=== PATIENT | female | born 1970 | race Caucasian/White ===

== ENCOUNTER 2016-04-07 05:21 | Day surgery (SDC) | payer OTHER ==
[2016-04-06 14:50] LABS: BASOPHILS 0.6 % (0.0-2.0); HEMATOCRIT 30.1 % (36.0-48.0); HEMOGLOBIN 8.8 g/dL (12-16); LYMPHOCYTES 31.9 % (15-50); MCH 20.7 pg (26.0-34.0); MCHC 29.2 g/dL (31.0-37.0); MCV 70.8 fL (80.0-100.0); MEAN PLATELET VOLUME 9.1 fL (7.4-10.4); MONOCYTES 8.2 % (2-11); NEUTROPHILS 56.3 % (40-80); PLATELET COUNT 491 10x3/uL (130-400); RBC 4.25 10x6/uL (4.00-5.40); WBC 6.7 10x3/uL (4.8-10.8)
[~2016-04-07] VITALS: Ht 180.3 cm; Wt 167.8 kg
[~2016-04-07 05:21] MED LIST: FERROUS SULFAT325 MG PO; GLUCOSAMINE & C1 CAP PO
[2016-04-07 06:09] VITALS: BP 154/76; Ht 180.3 cm; Wt 167.8 kg
--- NOTE | 2016-04-07 06:44 | NUR ---
TORADOL HELD, STATES DOES NOT TAKE ANY ANTI-INFLAMMATORY DRUGS. STATES "I JUST TAKE TYLENOL."
[2016-04-07 06:46] LABS: HCG URINE NEGATIVE (NEGATIVE)
[2016-04-07] MEDS ORDERED: PERCOCET 5-3251 TAB PO (09:14)
--- NOTE | 2016-04-07 09:56 | OP ---
PATIENT NAME: CHRISTY PATEL MEDICAL RECORD: [id number] :66 LOCATION:[facility] ADMISSION DATE: SURGEON: CELINE BUSBY MD DATE OF OPERATION: 04/07/2016 PREOPERATIVE DIAGNOSES: Menorrhagia and anemia. POSTOPERATIVE DIAGNOSES: Menorrhagia and anemia. PROCEDURES: Endocervical curettage, hysteroscopy, endometrial biopsy, and endometrial curettage. SURGEON: Celine Busby MD ANESTHESIA: General. FINDINGS: A 15 cm endometrial cavity depth, no endometrial lesions were seen. ESTIMATED BLOOD LOSS: Minimal. COMPLICATIONS OF SURGERY: None. OPERATIVE NOTE: The patient was taken to the OR and under adequate general anesthesia, prepped and draped in the usual manner for vaginal procedures with legs in floating boot Chucho stirrups. The anterior lip of the cervix was grasped with tenaculum. Endocervical curettage was performed. Endometrial cavity was then sounded to 15 cm or greater in depth. The cervix was progressively dilated to accept the hysteroscope and hysteroscopic evaluation revealed an atrophic appearing fairly smooth endometrium. Random areas were taken for biopsy. Instruments were then removed and a thorough endometrial curettage was performed and sent as a separate specimen. All instruments were then removed from the vagina and cervix and observation revealed no bleeding. The patient went to the recovery area in good condition. TRANSINT:[id number] Voice Confirmation ID: [id number] DOCUMENT ID: [id number] CELINE BUSBY MD at 0956 CC: [id number] DICTATION DATE: 04/07/16828 MEDICAL CLAIMS ASSISTANT: 04/07/16 0900 [place] [address]
--- NOTE | 2016-04-07 09:56 | HP ---
PATIENT: CHRISTY PATEL MEDICAL RECORD: [id number] ACCOUNT: [id number] LOCATION:[facility] : 66 ADMISSION DATE: 04/07/16 HISTORY AND PHYSICAL EXAMINATION Christy Patel is scheduled for an examination under anesthesia, endocervical and endometrial biopsies, hysteroscopy and endometrial curettage. HISTORY OF PRESENT ILLNESS: This patient is a 46-year-old 3, para 3 female with history of severe menorrhagia and anemia. An attempt was made to do an in office endometrial biopsy, but this was unsuccessful. MEDICAL HISTORY: DRUG ALLERGIES: NAPROXEN. CURRENT MEDICATIONS: Iron supplementation. MEDICAL PROBLEMS: Include morbid obesity, anemia and joint pain. FAMILY HISTORY: Noncontributory. REVIEW OF SYSTEMS: Denies chest pain or dyspnea. Positive for joint pain, precluding adequate exercise. PHYSICAL EXAMINATION: VITAL SIGNS: Weight is 272 pounds, blood pressure 120/78. HEENT: Grossly unremarkable. LUNGS: Clear. HEART: Regular rate and rhythm. ABDOMEN: Reveals no abnormalities. PELVIC: Deferred for anesthesia. EXTREMITIES: No cyanosis, clubbing or edema. NEUROLOGIC: Grossly intact. IMPRESSION: Morbid obesity, severe menorrhagia and anemia, unsuccessful office endometrial biopsy. PLAN: Examination under anesthesia, endometrial biopsy, endometrial curettage, hysteroscopy, all indicated procedures. I have discussed the potential risks of surgery for patient and answered all her questions. TRANSINT:[id number] Voice Confirmation ID: [id number] DOCUMENT ID: [id number] NANCIE BUSBY MD at 0956 CC: [id number] DICTATION DATE: 04/06/16 1629 SOFT DRINK POWDER MIXER: 04/06/16 1735 [facility] [address] [id number]
--- NOTE | 2016-04-07 10:00 | NUR ---
DISCHARGED HOME VIA WC
== END 2016-04-07 10:00 | disposition home or self-care (01) ==
LOC: D.OPS 05:21 → D.PAN 07:30 → D.OPS 10:00
PROVIDERS: Obstetrics & Gynecology
DX: N92.0 Excessive and frequent menstruation with regular cycle (principal); D64.9 Anemia, unspecified; E66.01 Morbid (severe) obesity due to excess calories; Z88.6 Allergy status to analgesic agent; Z79.899 Other long term (current) drug therapy

== ENCOUNTER → 2017-11-14 23:29 | Outpatient (CLI) | payer OTHER ==
[2016-04-07 06:09] VITALS: BMI 51.7
[~2017-11-14 23:29] MED LIST changes: +PERCOCET 5-3251 TAB PO
== END | disposition home or self-care (01) ==
LOC: D.MAMMO 16:00
DX: Z12.31 Encounter for screening mammogram for malignant neoplasm of breast (principal)

== ENCOUNTER 2018-05-28 18:29 | Inpatient (IN) | payer SELFPAY ==
[~2018-05-28] VITALS: Ht 180.3 cm; Wt 174.5 kg
--- NOTE | ~2018-05-28 | HEMODYNAMI ---
PATIENT:CHRISTY PATEL MEDICAL RECORD: [id number] : 66 LOCATION:[facility] D.2124 ADMISSION DATE: 05/29/18 Generatedon:05/30/201810:21 Patient name: CHRISTY PATEL Patient #: [id number] SSN: : 1970 Date of study: 05/30/2018 Page: Of Hemodynamic Procedure Report Patient Data Patient Demographics Procedure consent was obtained First Name: CHRISTY Gender: Female Last Name: AMANDA : 1970 [facility] Initial: EVELINA Age: 48 year(s) Patient #: [id number] Race: Unknown Additional ID: [id number] Contact details [address]: [address] [place] [address] State: [place] City: [place] Zip code: [address] Past Medical History Allergies Allergen Reaction Date Comments Reported Other allergy 05/30/2018 naproxen Admission Admission Data Admission Date: 05/29/2018 Admission Time: 18:34 Room #: D.2124 Procedure Procedure Types Cath Procedure Diagnostic Procedure Cardioversion External Procedure Description Procedure Date Procedure Date: 05/30/2018 Procedure Start Time: 10:15 Procedure End Time: 10:20 Procedure Staff Name Function Ang Kowalski MD Performing Physician Zakiya Kim RT Monitor Jake Ji RN Nurse Antionette Monreal CRNA Additional personnel Procedure Data Procedure Complications No complications Procedure Medications Medication Administration Route Dosage Oxygen etCO2 Nasal cannula 6 l/min 0.9% NaCl I.V. 100 ml/hr Refer to Anesthesia Notes for Sedation Medications Hemodynamics Rest Pre Cath Intra NCS Post Cath Vital Signs Time Heart Resp SPO2 etCO2 NIBP Rhythm Pain Sedation Rate (ipm) (%) (mmHg) (mmHg) Status Level (bpm) 10:12:10 118 17 98 37.7 98/77(89) NSR 0 (11) 10(A) , No pain 10:16:43 90 16 95 35.4 102/67(82) NSR 0 (11) 4(A) , No pain 10:20:05 90 17 93 20.3 112/74(84) NSR 0 (11) 8(A) , No pain Medications Time Medication Route Dose Verified Delivered Reason Notes Effective ness by by 10:11:46 Oxygen etCO2 6 Ang Joseph Per Nasal l/min Dex Ji RN physician cannula 10:11:54 0.9% NaCl I.V. 100 Ang Joseph Per ml/hr Dex Ji RN physician 10:12:00 Refer to Ang Joseph Anesthesia Dex Ji RN Notes for Sedation Medications Procedure Log Time Note 9:27:16 Time tracking: Regular hours (M-F 7:00 - 5:00) 9:27:21 Plan of Care:Hemodynamics will remain stable., Cardiac rhythm will remain stable., Comfort level will be maintained., Respiratory function will remain adequate., Patient/ family verbilizes understanding of procedure., Procedure tolerated without complication., Recovers from procedure without complications.. 9:45:23 Jake Ji RN sent for patient. Start room use. 10:03:09 Patient received from PCU to CCL 3 Alert and oriented. Tansferred to table in Supine position. 10:03:10 Warm blankets applied, and dima hugger turned on for patient comfort. 10:03:10 Correct patient and procedure confirmed by team. 10:03:11 Signed procedure consent form obtained from patient. 10:03:12 ECG and BP/O2 sat monitors applied to patient. 10:03:12 Full Disclosure recording started 10:04:49 TOMASA MONREAL CRNA PRESENT AND MONITORING PATIENT FOR TIVA. 10:09:22 Vital chart was started 10:09:28 Rhythm: atrial flutter 10:09:46 H&P Date Dictated: 05/29/2018 Within 30 days and on chart.. 10:09:47 Pre-procedure instructions explained to patient. 10:09:48 Pre-op teaching completed and patient verbalized understanding. 10:09:50 Family in waiting room. 10:09:51 Patient NPO since Midnight. 10:10:06 Patient allergic to Other allergynaproxen 10:10:09 Is the patient allergic to Iodine/contrast media? No. 10:10:11 Is patient on blood thinner?No 10:10:12 Patient diabetic? No. 10:10:15 Previous problem with sedation/anesthesia? No ? 10:10:17 Snore? Yes 10:10:18 Sleep apnea? No 10:10:19 Deviated septum? No 10:10:20 Opens mouth fully? Yes 10:10:20 Sticks out tongue? Yes 10:10:22 Airway obstruction? No ? 10:10:23 Dentures? No ? 10:10:38 Patient pain scale 0/10 ?. 10:10:45 IV patent on arrival in right hand with 0.9% NaCl at [facility]. 10:10:46 Lab results completed and on chart. 10:11:46 Oxygen 6 l/min etCO2 Nasal cannula was administered by Jake Ji RN; Per physician; 10:11:54 0.9% NaCl 100 ml/hr I.V. was administered by Jake Ji RN; Per physician; 10:12:00 Refer to Anesthesia Notes for Sedation Medications was administered by Jake Ji RN; ; 10:13:26 Final Timeout: patient, procedure, and site verified with staff and physician. All members of the team are in agreement. 10:13:44 Fire Safety Assessment: E--There are other possible contributors. 10:13:47 Physical assessment completed. ASA score P 2 - A patient with mild systemic disease as per Ang Kowalski MD. 10:13:50 Sedation plan: TIVA Medication:Propofol 10:14:04 Quick combo pads placed on patients chest and back. 10:14:20 Quick Combo opened to sterile field. 10:15:32 Procedure started. 10:15:35 Defibrillator synced and charged to 275 Joules. 10:15:47 Shock delivered. 10:15:54 Patient cardioverted to sinus rhythm . 10:16:06 Procedure ended.(Physican Out) 10:16:20 Sharps counted by scrub and verified by R.N. 10:16:39 Post-procedure physical assessment completed. ASA score P 2 - A patient with mild systemic disease as per Ang Kowalski MD. 10:16:42 Post procedure rhythm: sinus rhythm 10:16:44 Post procedure instruction explained to patient.Patient verbalizes understanding. 10:16:44 Patient needs reinforcement of post procedure teaching. 10:16:51 Procedure Complication : No complications 10:17:03 See physician's report for complete and final results. 10:17:10 Report given to Pre/Post Procedure Room. 10:20:48 Vital chart was stopped 10:20:52 Patient transfered to Pre/Post Procedure Room with Stretcher. 10:20:54 Procedure ended. 10:20:54 Full Disclosure recording stopped 10:20:56 End room use (Document Last) Device Usage Item Manufacture Quantity Catalog Hospital Part Current Minimal Lot# / Name Number Charge Number Stock Pham scott# Code IDbyME 1 [id number] Combo Signature Audit [place] Stage Time Signature Unsigned Intra-Procedure 05/30/2018 Zakiya 10:21:21 AM Counts RT(R) Signatures Monitor : aZkiya Signature : Counts RT Date : Time : [address] [address]
--- NOTE | ~2018-05-28 | DS ---
PATIENT:CHRISTY PATEL :66 MEDICAL RECORD: [id number] DISCHARGE SUMMARY ADMISSION DATE: 05/29/18 DISCHARGE DATE: 05/30/18 DISCHARGE DIAGNOSES: 1. Atrial fibrillation. 2. DC cardioversion. HOSPITAL COURSE: Ms. Patel presents with atrial fibrillation, was started on sotalol and Eliquis, failed to convert pharmacologically, underwent DC cardioversion. Discharged home with the addition of sotalol and Eliquis to her medical regimen. She will follow up with [facility] in 1 month. TRANSINT:[id number] Voice Confirmation ID: [id number] DOCUMENT ID: [id number] VIVI SUMMERS MD CC: [id number] DICTATION DATE: 05/30/18 1021 AUCTION CLERK: 05/30/18 2322 DIS IN 05/30/[id number] [place] [address]
--- NOTE | ~2018-05-28 | EC ---
PATIENT:CHRISTY PATEL DATE OF SERVICE: 05/28/18 SEX: F MEDICAL RECORD: [id number] DATE OF : 66 LOCATION:D. D.212 AGE OF PATIENT: 48 ADMISSION DATE: 05/28/18 REFERRING PHYSICIAN: INTERPRETING PHYSICIAN: VIVI KOWALSKI MD ECHOCARDIOGRAM REPORT ECHO CHARGES 4 ECHO COMPLETE Date: 05/29/18 CLINICAL DIAGNOSIS: AFIB ECHOCARDIOGRAPHIC MEASUREMENTS (adult normal given) AC root (d.<3.7cm) 2.6 cm LV Septum d (<1.2 cm> 1.1 cm Valve Excursion 1.4 cm LV Septum (systole) 1.5 cm Left Atria (s.<4.0cm> 4.9 cm LVPW d(<1.2cm) 1.1 cm RV (d.<2.3cm) 4.1 cm LVPW (sytole) 2.0 cm LV diastole(<5.6CM) 3.2 cm MV E-F(>70mm/sec) cm LV systole 1.5 cm LVOT Diameter 2.1 cm MV exc.(>10mm) cm Est.ejection fraction (50-75%) % DOPPLER: LVIT cm/sec A 27 cm/sec E 78 cm/sec LA cm/sec RVSP 28.1 mmHg LVOT 88 cm/sec AOP1/2T m/s Asc. Ao 115 cm/sec RVOT 73 cm/sec RA cm/sec PA 74 cm/sec AV Gradient Peak 5.3 mmHg AV Mean 3.5 mmHg AV Area 2.6 cm MV Gradient Peak 6.4 mmHg MV Mean 2.1 mmHg MV Area cm COMMENTS: Ultrasound Technician: Neelima [facility] Yarder: 1 Dr. Kowalski TAPE# PACS Pericardial Effusion N DATE OF SERVICE: 05/29/2018 FINDINGS: 1. Left ventricular chamber size is within normal limits. Left ventricular systolic function is normal. Overall ejection fraction is estimated at 55%. 2. Left atrium is enlarged at 4.9 cm. Right atrium and right ventricular chamber sizes are as well [id number] dilated. 3. Valvular structures have normal structure and motion. 4. Doppler interrogation reveals mild mitral regurgitation and mild tricuspid regurgitation. No other valvular insufficiency or stenosis. ECHOCARDIOGRAM REPORT [id number] CHRISTY PATEL 5. No evidence of pericardial effusion or left ventricular thrombus. TRANSINT:[id number] Voice Confirmation ID: [id number] DOCUMENT ID: [id number] VIVI KOWALSKI MD CC: [id number] DICTATION DATE: 05/29/18 170 LINING STITCHER: 05/29/18 1846 ADM IN [id number] [place] [address]
--- NOTE | ~2018-05-28 | OP ---
PATIENT NAME: CHRISTY PATEL MEDICAL RECORD: [id number] :66 LOCATION:[facility] ADMISSION DATE:05/29/18 SURGEON: VIVI SUMMERS MD DATE OF OPERATION: 05/30/2018 PROCEDURE: DC cardioversion. INDICATION: Atrial fibrillation. PROCEDURE IN DETAIL: IV conscious sedation was per anesthesia. She received 1 shock restoring sinus rhythm. OVERALL IMPRESSION: Successful DC cardioversion from atrial fibrillation to sinus rhythm. TRANSINT:[id number] Voice Confirmation ID: [id number] DOCUMENT ID: [id number] VIVI SUMMERS MD CC: [id number] DICTATION DATE: 05/30/18 1021 ANTIQUE COLLECTOR: 05/30/18 1053 ADM IN [facility] [address] [place] [address]
--- NOTE | ~2018-05-28 | HP ---
PATIENT: CHRISTY PATEL MEDICAL RECORD: [id number] ACCOUNT: [id number] LOCATION:. D.2124 : 66 ADMISSION DATE: 05/28/18 PCP: LISA KRAMER HISTORY AND PHYSICAL EXAMINATION DIAGNOSES: 1. Atrial fibrillation with rapid ventricular response. 2. Hypertension. 3. Shortness of breath, dyspnea on exertion. HISTORY OF PRESENT ILLNESS: Mrs. Patel presents after 1-day of being short of breath with dyspnea and palpitations, found to be in atrial fibrillation with rapid ventricular response. She has no history of atrial fibrillation or cardiac history. She did not have any chest pain with this. Her EKG is with no ST-T abnormalities, only the tachycardia. Her troponin is normal. PHYSICAL EXAMINATION: GENERAL APPEARANCE: Well-nourished, well-developed, appears stated age. Level of distress, comfortable. PSYCHIATRIC: Mental status, alert, normal affect. Orientation, oriented to time, place and person. EYES: Lids and conjunctiva, noninjected. No discharge, no pallor. ENT: Lips, teeth, gums, normal dentition. Oropharynx, no cyanosis, no pallor. NECK: Carotid arteries, bilateral normal upstroke, no bruits, no thrills. JUGULAR VEINS: No jugular venous pressure or distention. CERVICAL LYMPH NODES: Nontender, nonenlarged. THYROID: Not enlarged. Nontender. No nodules. LUNGS: Respiratory effort, unlabored. CHEST: Normal curvature. No thoracic deformity. No chest wall tenderness. Percussion, resonant. Auscultation, clear. No wheezes, no rales, no rhonchi. CARDIOVASCULAR: Precordial exam, nondisplaced. No heaves or pericardial thrills. Rate and rhythm, regular. Heart sounds, normal S1, normal S2. No S3, no gallop, no rub. Systolic murmur, not heard. Diastolic murmur, not heard. EXTREMITIES: No cyanosis, no edema. Peripheral pulses, full and equal in all extremities, except as noted. No bruits appreciated. ABDOMEN: Soft, nondistended. Normal aorta. No bruit. Nontender. No masses. Liver, nontender, no hepatomegaly. Spleen, nontender, no splenomegaly. MUSCULOSKELETAL: No joint tenderness. No joint swelling. No erythema. NEUROLOGICAL: Normal gait, normal strength, normal tone. SKIN: Warm and dry. OVERALL IMPRESSION: Atrial fibrillation with rapid ventricular response. With the Cardizem drip, she has slowed to 70s, but she is still in atrial fibrillation, atrial flutter. She was given 1 dose of sotalol as well. This is not converted yet. We will place her on sotalol b.i.d. At this point, get an echocardiogram. Discontinue the Cardizem drip. If she does not convert by morning, we will proceed with DC cardioversion. We will use Lovenox for anticoagulation in the acute setting today along with Eliquis. TRANSINT:[id number] Voice Confirmation ID: [id number] DOCUMENT ID: [id number] HISTORY AND PHYSICAL [id number] CHRISTY PATEL JEFFREY MD CC: [id number] DICTATION DATE: 05/29/18819 QUALITY ASSURANCE SUPERVISOR BODY: 05/29/[address] [facility] [address] [id number]
[2018-05-28 18:54] VITALS: BP 135/74
[2018-05-28 19:10] LABS: BASOPHILS 0.4 % (0-2); EOSINOPHILS 1.9 % (0-7); HEMATOCRIT 44.2 % (36.0-48.0); HEMOGLOBIN 14.7 g/dL (12-16); IMMATURE GRANULOCYTES 0.2 % (0-5); LYMPHOCYTES 30.1 % (15-50); MCH 28.7 pg (26.0-34.0); MCHC 33.3 g/dL (31.0-37.0); MCV 86.2 fL (80.0-100.0); MEAN PLATELET VOLUME 9.4 fL (7.4-10.4); MONOCYTES 5.2 % (2-11); NEUTROPHILS 62.2 % (40-80); PLATELET COUNT 398 10x3/uL (130-400); RBC 5.13 10x6/uL (4.00-5.40); RDW 12.9 % (11.5-14.5); WBC 11.2 10x3/uL (4.8-10.8)
[2018-05-28 19:18] LABS: APTT 27.8 SECONDS (22.8-39.4); INR 0.95 (0.85-1.17); PROTIME 12.2 SECONDS (11.6-15.0)
[2018-05-28 19:19] LABS: D-DIMER-QUANTITATIVE 0.45 ug/mLFEU (0.20-0.54)
[2018-05-28 19:26] LABS: ALBUMIN 3.8 g/dL (3.4-5.0); ALKALINE PHOSPHATASE 68 U/L (46-116); ALT (SGPT) 16 U/L (10-68); BILIRUBIN - TOTAL 0.31 mg/dL (0.2-1.3); CALC OSMOLALITY 279 mosm/kg (275-300); CALCIUM 9.8 mg/dL (8.5-10.1); CARBON DIOXIDE 24.5 mmol/L (21.0-32.0); CHLORIDE - SERUM 102 mmol/L (98-107); CREATININE - SERUM 1.2 mg/dL (0.6-1.3); GLUCOSE 122 mg/dL (74-106); POTASSIUM - SERUM 4.1 mmol/L (3.5-5.1); PROTEIN - SERUM 8.2 g/dL (6.4-8.2); SODIUM 138 mmol/L (136-145); UREA NITROGEN 22 mg/dL (7-18); eGFR NON AFRICAN AMERICAN 50 mL/min (90-120)
[2018-05-28 19:30] VITALS: BP 146/75
[2018-05-28 19:39] LABS: CKMB 0.1 U/L (0.0-3.6); CREATINE KINASE 50 UL (21-215); MAGNESIUM - SERUM 2.3 mg/dL (1.8-2.4)
[2018-05-28 19:40] LABS: TROPONIN-I < 0.017 ng/mL (0.000-0.060)
[2018-05-28 20:00] VITALS: BP 93/63
--- NOTE | 2018-05-28 20:20 | NUR ---
C/O PAIN WITH THE PIV SITE TO THE RAC. FLUSH FINE WITHOUT DIFF. SITE WITHOUT REDNESS. PT REQUESTED TO RELOCATE PIV. NEW PIV STARTED TO RT HAND. D/C PIV TO RAC. CATH INTACT. DRSG APPLIED. NO BLEEDING NOTED.
[2018-05-28 20:30] VITALS: BP 106/73
[2018-05-28 21:00] VITALS: BP 102/73
[2018-05-28] MEDS ORDERED: ZESTRIL40 MG PO (22:44)
[2018-05-28] MEDS ORDERED: BUPROPION HCL75 MG PO (22:45)
[2018-05-28] MEDS ORDERED: MAXZIDE 75/501 TAB PO (22:45)
[2018-05-28] MEDS ORDERED: FERROUS SULFAT325 MG PO (22:46)
[2018-05-28 22:48] VITALS: BP 105/67; Ht 180.3 cm; Wt 174.5 kg
[2018-05-28] MEDS ORDERED: PROVERA2.5 MG IM (22:48)
--- NOTE | 2018-05-28 23:03 | NUR ---
PT ARRIVED VIA W/C FROM ER AT 2248 HRS. PT DENIED ANY DISCOMFORT. A-FLUTTER PER CM HR 128. CARDIZEM DRIP AT 15MG/HR TO R HAND. IV PATENT. VSS. ALERT AND ORIENTEDTO PERSON,PLACE AND TIME. [place]. LUNGS CTA. ADMISSIONASSESSMENT, HISTORY AND HOME MED LIST COMPLETED. NON-SLIP SOCKS PLACED ON PT. WILL CONTINUE TO MONITOR. SR UP X2, CALL LIGHT WITHIN REACH.
--- NOTE | 2018-05-29 00:21 | NUR ---
A-FLUTTER PER CM HR 82. PT DENIES ANY DISCOMFORT. CALL LIGHT WITHIN REACH AND SR UP X2.
--- NOTE | 2018-05-29 02:14 | NUR ---
PT RESTING WITH EYES CLOSED. RESP EVEN AND REGULAR. SR UP X2, CALL LIGHT WITHIN REACH.
--- NOTE | 2018-05-29 04:20 | NUR ---
PT RESTING WITH EYES CLOSED. RESP EVEN AND REGULAR. SR UP X2, CALL LIGHT WITHIN REACH.
--- NOTE | 2018-05-29 06:44 | NUR ---
HR 71 A-FLUTTER. PT STATES SHE FEELS MUCH IMPROVED. NEEDS MET; WILL CONTINUE TO MONITOR.
--- NOTE | 2018-05-29 07:30 | NUR ---
ASSESSMENT COMPLETED. TELEMERTY SHOWS FLUTTER AT 98. PT IS ON ROOM AIR, LUNGS CLEAR. UP AB MEÑO. DENIES ANY NEEDS. RIGHT HAND SL. WILL MONITOR
[2018-05-29 07:39] LABS: ALBUMIN 3.5 g/dL (3.4-5.0); BILIRUBIN - TOTAL 0.55 mg/dL (0.2-1.3); CALCIUM 9.8 mg/dL (8.5-10.1); CARBON DIOXIDE 28.5 mmol/L (21.0-32.0); CREATININE - SERUM 1.3 mg/dL (0.6-1.3); POTASSIUM - SERUM 4.5 mmol/L (3.5-5.1); PROTEIN - SERUM 7.5 g/dL (6.4-8.2)
[2018-05-29 07:40] LABS: BASOPHILS 0.6 % (0-2); EOSINOPHILS 2.4 % (0-7); HEMOGLOBIN 13.8 g/dL (12-16); IMMATURE GRANULOCYTES 0.2 % (0-5); LYMPHOCYTES 27.8 % (15-50); MCHC 32.1 g/dL (31.0-37.0); MCV 87.4 fL (80.0-100.0); MEAN PLATELET VOLUME 9.5 fL (7.4-10.4); MONOCYTES 7.6 % (2-11); NEUTROPHILS 61.4 % (40-80); PLATELET COUNT 384 10x3/uL (130-400); RBC 4.92 10x6/uL (4.00-5.40); RDW 13.1 % (11.5-14.5); WBC 9.5 10x3/uL (4.8-10.8)
[2018-05-29 08:28] VITALS: BP 118/76
[2018-05-29 12:11] VITALS: BP 122/72
--- NOTE | 2018-05-29 15:52 | NUR ---
UP IN BEDSIDE CHAIR. DENIES ANY NEEDS. CALL LIGHT IN REACH, TELEMERTY SHOWS FLUTTER AT 98.
[2018-05-29 16:48] VITALS: BP 109/76
--- NOTE | 2018-05-29 17:48 | NUR ---
BACK TO BED. DENIES ANY NEEDS.TELEMERTY SHOWSAFLUTTER 134. PT TO HAVE A CARDIOVERSION TOMORROW. NPO AFTER MN. DENIES ANY NEEDS
--- NOTE | 2018-05-29 18:17 | NUR ---
I have reviewed this patient and I concur with the Shift Assessment completed by the Licensed Practical Nurse today this shift.
[2018-05-29 19:52] VITALS: BP 107/55
--- NOTE | 2018-05-29 23:51 | NUR ---
RECIEVED UP IN BED WITH EYES OPEN AND TV ON. IV TO RIGHT HAND SL.. WILL BE NPO AFTER MN D/T CARDIOCONVERSION SCHEDULED FOR TOMORROW. TELEMETRY IN PLECE. JUAN CONT TO ASSESS.
[2018-05-29 23:55] VITALS: BP 100/46
[2018-05-30 03:55] VITALS: BP 94/49
--- NOTE | 2018-05-30 08:12 | NUR ---
ASSESSMENT COMPLETED. AWAKE AND ALERT, TELEMERTY SHOWS FLUTTER AT 86. RIGHT HAND SL. UP AB MEÑO. DENIES ANY NEEDS. WILL MONITOR
[2018-05-30 08:37] VITALS: BP 110/60
--- NOTE | 2018-05-30 10:30 | NUR ---
RECIEVED TO ROOM VIA STRETCHER FROM CEREAL SUPERVISOR WITH HR 78 BP 102/78. PATIENT CONNECTED TO MONITOR FOR OBSERVATION. CARDIOVERSION SUCESSFUL PATIENT DENIED PAIN OR NEED.
[2018-05-30] MEDS ORDERED: ELIQUIS5 MG PO (10:43)
[2018-05-30] MEDS ORDERED: BETAPACE 120 M120 MG PO (10:43)
--- NOTE | 2018-05-30 10:45 | NUR ---
SANDWICH AND SODA TO BEDSIDE WITH NAUSEA DENIED
--- NOTE | 2018-05-30 11:00 | NUR ---
DR SUMMERS AT BEDSIDE PATIENT DENIED PAIN OR NEEDS SR RATE OF 83
--- NOTE | 2018-05-30 11:23 | NUR ---
PIV REMOVED WITH DRESSING APPLIED. PATIENT DENIED PAIN WITH HR SINUS AT 80 UP TO GET DRESSED FOR DISCHARGE HOME
--- NOTE | 2018-05-30 11:43 | NUR ---
VERBAL AND WRITTEN DISCHARG GONE OVER WITH PATIENT AND FAMILY. PATIENT LEFT VIA WC TO PARKING FOR PRIVATE TRANSPORT HOME NO DISTRESS NOTED
== END 2018-05-30 11:45 | disposition home or self-care (01) | DRG 310 ==
LOC: D.ER 18:29 → D.EDHOLD 19:58 → OBSVTIME 19:58 → D.M2 19:58 → D.CLR 05-29 18:34 → D.M2 05-29 18:34 → D.CLR 05-30 10:27
PROVIDERS: Family Medicine; ADMIT Internal Medicine Interventional Cardiology; ATTEND Internal Medicine Interventional Cardiology
DX: I48.92 Unspecified atrial flutter (principal); I48.91 Unspecified atrial fibrillation

== ENCOUNTER 2019-01-18 09:00 | Outpatient (CLI) | payer MEDICAID ==
[2018-05-28 22:48] VITALS: BMI 55.2
[~2019-01-18 09:00] MED LIST changes: +BETAPACE 120 M120 MG PO; +BUPROPION HCL75 MG PO; +ELIQUIS5 MG PO; +MAXZIDE 75/501 TAB PO; +PROVERA2.5 MG IM; +ZESTRIL40 MG PO
== END 2019-01-18 10:00 | disposition home or self-care (01) ==
LOC: D.MAMMO 09:00
PROVIDERS: ATTEND Nurse Practitioner Women's Health
DX: Z12.31 Encounter for screening mammogram for malignant neoplasm of breast (principal)